=== PATIENT | female | born 1970 | race Caucasian/White ===

== ENCOUNTER 2017-01-31 08:10 | Emergency (ER) | payer OTHER, BC ==
[2017-01-31] MEDS ORDERED: cefTRIAXone 250 MG Vial IM ONE (10:44)
[2017-01-31] MEDS ORDERED: Azithromycin 500 MG Tab PO ONE (10:45)
[2017-01-31] MEDS ORDERED: Phenazopyridine 95 MG Tab PO ONE (10:48)
[2017-01-31] MEDS ORDERED: Ondansetron 4 MG Tab.DIS PO ONE (10:58)
[2017-01-31] MEDS ORDERED: Ondansetron 4 MG Tab.DIS PO SCH (11:00)
[2017-01-31 11:26] VITALS: BP 116/58
[2017-01-31] MEDS ORDERED: Phenazopyridine 95 MG Tab PO SCH (13:00)
--- NOTE | 2017-02-03 09:50 | ER ---
DATE SEEN: 01/31/2017 TIME SEEN: The patient was seen at 0838 hours. CHIEF COMPLAINT: Dysuria and frequency, status post last menstrual period 01/14/2017, with x2, 2, para 2-0-0-2, woman, comes in with history of onset of frequency, urgency, and dysuria. The patient was treated by nurse practitioner/doctor with Cipro and 2 days later was not getting better, consequently placed on TMP/SMX, still has symptoms. She wonders if the antibiotic is working. She has frequency, urgency, and dysuria. She denies fever. She has mild low back discomfort which is more at the level of the sacroiliac joints. Denies frequent urinary tract infections. Denies vaginitis, foul smell, vaginal labial irritation, or oral sex. REVIEW OF SYSTEMS: Negative except as noted above. ALLERGIES: None. MEDICATIONS: 1. Cipro. 2. TMP/SMX. 3. Citalopram for depression. 4. Calcium carbonate. 5. Provera IM. 6. Depo-Provera for contraception. 7. Seroquel 25 mg daily. 8. Omeprazole 20 mg daily. 9. Klonopin 0.5 mg p.r.n. PHYSICAL EXAMINATION: VITAL SIGNS: Blood pressure 108/59, heart rate 76, respirations 16, oxygen saturation 99%. GENERAL: Alert woman, mildly tired. TMs negative. Pharynx negative. LUNGS: Clear without rales, rhonchi, or wheezes. HEART: S1, S2. No murmur. ABDOMEN: Soft. No guarding. No abdominal discomfort. Mild suprapubic discomfort. Minimal sacroiliac level discomfort. No CVA percussion tenderness. PELVIC: Performed with her permission and nurse present in the room, nurse Pulliam. External genitalia normal to inspection. Vaginal mucosa normal appearance. Trace vaginal discharge. No odor noted. Uterus anteverted, is about 6 to 8 cm in size. Left adnexa, mild tenderness, unable to palpate the ovaries completely. Right adnexa negative. No Chandelier's sign. No excessive vaginal discharge, secretions or watery secretions. SOCIAL HISTORY: The patient is single, works at the lab at [employer]. DIAGNOSTIC DATA: Studies: NAAT, Nucleic Acid Amplification Test for Trichomonas pending, ADIA, Gardnerella, and also clue cells being evaluated. PLAN: The patient after a lengthy discussion has been treated for empirical STDs - her recent partner has been just for a month. She does not think she has STD, but she is readily accepting the possibility and treated for that with 250 mg Rocephin IM and 1 g of azithromycin preceded with sublingual Zofran. The patient will follow up regarding the NAAT results in 2 days. We discussed the CDC's recommendations. Follow up with doctor on an as needed basis and also have other partner tested or forgo relationship. DIAGNOSES: 1. Dysuria. 2. Urinalysis. Urinalysis today suggests she has moderate bacteria, is not responding to TMP/SMX. She has not had a urine culture. Her difficulty with frequency and urgency may be secondary to urethritis and a sexually- transmitted disease, however, it is not proven. 3. It is possible she has resistant bacteria. She has an open prescription for prn trimethoprim, but now (recently) has been treated with TMP/SMX. 4. Another fact is that it is possible that none of these diagnoses are pertinent and she may have nonspecific desquamative vaginitis which requires a completely different therapy. 5. It is possible she had Gardnerella or Trichomonas or yeast infection and the results of the tests are not back. The patient would like to go home and get some sleep and I can call the results of those tests later if they come back abnormal. The patient was seen approximately at 0830 hours. /[id number] ANGELITO/JOSE ANTONIO
[2017-02-05 09:57] LABS: C. TRACHOMATIS (APTIMA) Not Detected (NOTDET); CANDIDA SPECIES Not Detected (NOTDET); GARDNERELLA VAGINALIS Not Detected (NOTDET); N. GONORRHOEAE (APTIMA) Not Detected (NOTDET); T. VAGINALIS (APTIMA) Not Detected (NOTDET)
== END 2017-01-31 11:22 | disposition home or self-care (01) ==
LOC: FB.ED 08:10
DX: R30.0 Dysuria (principal); R82.71 Bacteriuria; Z79.899 Other long term (current) drug therapy
CPT/HCPCS: 36415; 81001; 87086; 87481; 87491; 87511; 87591; 87661; 96372; 99283; A9270; J0696

== ENCOUNTER 2020-01-08 16:42 | Emergency (ER) | payer MEDICAID ==
--- NOTE | 2020-01-08 17:31 | EDM.PDOCBH ---
ED HPI GENERAL MEDICAL PROBLEM - General Stated Complaint: WITHDRAWAL? Time Seen by Provider: 01/08/20 16:50 Source of Information: Reports: Patient History Limitations: Reports: No Limitations - History of Present Illness INITIAL COMMENTS - FREE TEXT/NARRATIVE: Patient presented to the ED because of an anxiety attack. She said she is off her citalopram and klonopin and couldn't sleep for 2 days now. She denies any suicidal or homicidal thoughts. - Related Data Allergies Allergy/AdvReac Type Severity Reaction Status Date / Time No Known Allergies Allergy Verified 01/31/17 08:27 Home Meds: Home Meds Calcium Carbonate/Vitamin D3 [Calcium 600 + Vit D Tablet] 1 each PO DAILY [History] Citalopram [Citalopram HBr] 40 mg PO DAILY 03/07/16 [History] ClonazePAM [KlonoPIN] 0.5 mg PO BEDTIME PRN 03/07/16 [History] Omeprazole 20 mg PO DAILY PRN 03/07/16 [History] QUEtiapine [SEROquel] 25 mg PO DAILY 03/07/16 [History] medroxyPROGESTERone [Depo-Provera] 150 mg IM ASDIRECTED 03/07/16 [History] Ciprofloxacin [Ciprofloxacin HCl] 250 mg PO BID 01/31/17 [History] Phenazopyridine [Pyridium] 100 mg PO TID #6 tablet 01/31/17 [Rx] Trimethoprim 100 mg PO ASDIRECTED 01/31/17 [History] hydrOXYzine pamoate [Vistaril] 50 mg PO Q8H PRN #30 cap 01/08/20 [Rx] Past Medical History HEENT History: Reports: None Cardiovascular History: Reports: None Respiratory History: Reports: None Gastrointestinal History: Reports: Cholelithiasis, GERD, Other (See Below) Other Gastrointestinal History: CHRONIC CHOLECYTITIS, IRRITABLE BOWEL SYNDROME Genitourinary History: Reports: UTI, Recurrent [employer] History: Reports: Musculoskeletal History: Reports: Back Pain, Chronic, Fracture Other Musculoskeletal History: FX PELVIS AT AGE 15 Neurological History: Reports: None Psychiatric History: Reports: Anxiety, Depression Other Psychiatric History: CONTROLLED WITH MEDS. INSOMNIA Endocrine/Metabolic History: Reports: None Hematologic History: Reports: None Immunologic History: Reports: None Oncologic (Cancer) History: Reports: None Dermatologic History: Reports: None - Infectious Disease History Infectious Disease History: Reports: None - Past Surgical History GI Surgical History: Reports: Cholecystectomy, Hernia, Inguinal, Other (See Below) Female Surgical History: Reports: Section Dermatological Surgical History: Reports: Plastic Surgical Reconstruction/Repair Social & Family History - Family History Family Medical History: Noncontributory - Caffeine Use Caffeine Use: Reports: Coffee, Soda, Tea ED ROS GENERAL - Review of Systems Review Of Systems: See Below Constitutional: Reports: No Symptoms HEENT: Reports: No Symptoms Respiratory: Reports: No Symptoms Cardiovascular: Reports: No Symptoms Endocrine: Reports: No Symptoms GI/Abdominal: Reports: No Symptoms : Reports: No Symptoms Musculoskeletal: Reports: No Symptoms Skin: Reports: No Symptoms Neurological: Reports: No Symptoms Psychiatric: Reports: Anxiety Hematologic/Lymphatic: Reports: No Symptoms Immunologic: Reports: No Symptoms ED EXAM, BEHAVIORAL HEALTH - Physical Exam Exam: See Below Exam Limited By: No Limitations General Appearance: Alert, No Apparent Distress Ears: Normal External Exam, Normal Canal Nose: Normal Inspection, Normal Mucosa, No Blood Throat/Mouth: Normal Inspection, Normal Lips, Normal Teeth, Normal Gums, Normal Oropharynx, Normal Voice Head: Atraumatic, Normocephalic Neck: Normal Inspection, Supple, Non-Tender, Full Range of Motion Respiratory/Chest: No Respiratory Distress, Lungs Clear, Normal Breath Sounds Cardiovascular: Normal Peripheral Pulses, Regular Rate, Rhythm, No Edema, No Gallop, No JVD, No Murmur GI/Abdominal: Normal Bowel Sounds, Soft, Non-Tender, No Organomegaly Back Exam: Normal Inspection, Full Range of Motion Extremities: Normal Inspection, Normal Range of Motion, Non-Tender Neurological: Alert, Normal Mood/Affect, CN II-XII Intact COURSE, BEHAVIORAL HEALTH COMP - Course Vital Signs: vistaril 50 mg po x1 klonopin 0.5 mg po x1 Orders, Labs, Meds: Medications Discontinued Medications Generic Name Dose Route Start Last Admin Trade Name Freq PRN Reason Stop Dose Admin Clonazepam 0.5 mg 01/08/20 17:20 01/08/20 17:37 Klonopin PO 01/08/20 17:21 0.5 mg ONETIME ONE Administration Hydroxyzine Pamoate 50 mg 01/08/20 17:20 01/08/20 17:37 Vistaril PO 01/08/20 17:21 50 mg NOW STA Administration Departure - Departure Time of Disposition: 17:30 Disposition: Home, Self-Care 01 Condition: Good Clinical Impression: Anxiety, Panic attack - Discharge Information Prescriptions: hydrOXYzine pamoate [Vistaril] 50 mg PO Q8H PRN #30 cap PRN Reason: Anxiety Instructions: Panic Attack, [id number] Referrals: Amanda Rubio PA [Primary Care Provider] - Additional Instructions: Please read discharge instructions on anxiety and panic attack Do some meditation technique on you tube Take hydroxyzine 50 mg every 8 hours as needed for anxiety/sleep Follow up with your psychiatrist or primary doctor as needed Sepsis Event Note - Focused Exam Date Exam was Performed: 01/08/20 Time Exam was Performed: 18:15
[2020-01-08] MEDS: ClonazePAM 0.5 MG Tab PO ONE (17:37)
[2020-01-08 18:57] VITALS: BP 125/71; PULSE 84
== END 2020-01-08 17:38 | disposition home or self-care (01) ==
LOC: FB.ED 16:42
DX: F41.0 Panic disorder [episodic paroxysmal anxiety] (principal); F32.9 Major depressive disorder, single episode, unspecified; Z79.899 Other long term (current) drug therapy
CPT/HCPCS: 99283; A9270

== ENCOUNTER 2024-04-16 17:03 | Emergency (ER) | payer MEDICAID ==
[2024-04-16 17:49] LABS: BASOPHILS PERCENT AUTO 0.5 % (0.2-1.5); EOSINOPHILS ABSOLUTE AUTO 0.1 x10-3/uL (0.0-0.8); EOSINOPHILS PERCENT AUTO 0.6 % (0.6-8.1); HEMATOCRIT 39.7 % (34.2-48.2); HEMOGLOBIN 13.5 g/dL (11.4-15.5); LYMPHOCYTES ABSOLUTE AUTO 1.9 x10-3/uL (1.0-4.4); LYMPHOCYTES PERCENT AUTO 21.6 % (18.4-52.1); MEAN CORPUSCULAR HEMOGLOBIN 29.1 pg (23.9-33.9); MEAN CORPUSCULAR VOLUME 85.6 fL (76.7-100.5); MEAN PLATELET VOLUME 6.8 fL (7.1-12.4); MONOCYTES ABSOLUTE AUTO 0.5 x10-3/uL (0.3-1.0); MONOCYTES PERCENT AUTO 6.1 % (4.4-15.7); NEUTROPHILS ABSOLUTE AUTO 6.1 x10-3/uL (1.5-6.3); NEUTROPHILS PERCENT AUTO 71.2 % (30.8-76.2); PLATELET COUNT,PLT 305 x10(3)uL (151-488); RED BLOOD CELL COUNT 4.63 x10(6)uL (3.60-5.20); RED CELL DISTRIBUTION WIDTH 13.5 % (12.3-16.5); WHITE BLOOD CELL COUNT,WBC 8.6 x10-3/uL (3.0-10.3)
[2024-04-16 17:55] LABS: BLOOD UREA NITROGEN,BUN 7 mg/dL (7-18); CARBON DIOXIDE,CO2 25 mmol/L (21-32); CHLORIDE,CL 104 mmol/L (100-110); CREATININE 0.7 mg/dL (0.55-1.02); EST CRCL DRUG DOSING (CG) 74.35 mL/min; ESTIMATED GFR 104 mL/min (>60); GLUCOSE RANDOM 95 mg/dL (80-116); POTASSIUM,K 3.7 mmol/L (3.5-5.3); SODIUM,NA 140 mmol/L (135-145)
[2024-04-16 18:01] LABS: A/G RATIO 1.1; ALANINE AMINOTRANSFERASE,ALT 27 U/L (12-36); ALBUMIN 3.9 g/dL (3.5-5.2); ALKALINE PHOSPHATASE 77 IU/L (56-112); ASPARTATE AMNIOTRANSFERASE,AST 21 IU/L (5-25); BILIRUBIN TOTAL 0.5 mg/dL (0.1-1.3); PROTEIN TOTAL,TP 7.5 g/dL (6.0-8.0)
[2024-04-16 18:14] LABS: BILIRUBIN,URINE NEGATIVE (NEGATIVE); GLUCOSE,URINE NORMAL (NORMAL); KETONES,URINE NEGATIVE (NEGATIVE); LEUKOCYTE ESTERASE,URINE NEGATIVE (NEGATIVE); NITRITE,URINE NEGATIVE (NEGATIVE); OCCULT BLOOD,URINE NEGATIVE (NEGATIVE); PROTEIN,URINE NEGATIVE (NEGATIVE); UROBILINOGEN,URINE NORMAL (NEGATIVE)
[2024-04-16 18:22] LABS: TSH ULTRASENSITIVE 0.85 IU/mL (0.36-3.74); VITAMIN D,25-HYDROXY 23.6 ng/mL (30.0-100.0)
[2024-04-16 18:24] LABS: APPEARANCE,URINE CLEAR (CLEAR); COLOR,URINE YELLOW (YELLOW); RBC,URINE 0-5 (0-5); SQUAMOUS EPITHELIAL CELLS,UR RARE (NS,R,O); WBC,URINE 0-5 (0-5)
[2024-04-16 19:19] VITALS: BP 128/85; PULSE 80
== END 2024-04-16 18:40 | disposition home or self-care (01) ==
LOC: FB.ED 17:03
DX: F41.9 Anxiety disorder, unspecified (principal); K21.9 Gastro-esophageal reflux disease without esophagitis; F17.210 Nicotine dependence, cigarettes, uncomplicated; Z91.048 Other nonmedicinal substance allergy status; Z79.899 Other long term (current) drug therapy; Z90.49 Acquired absence of other specified parts of digestive tract
CPT/HCPCS: 36415; 80053; 81001; 82306; 84443; 85025; 99283; A9270